=== PATIENT | male | born 1985 | race Caucasian/White ===

== ENCOUNTER 2021-01-23 16:39 | Outpatient (REF) | payer OTHER, SELFPAY | END 2021-01-23 16:40 | disposition home or self-care (01) | LOC: HO.LNP 16:39 | PROVIDERS: Visit Provider Physician Assistant | DX: L03.90 Cellulitis, unspecified (principal) | CPT/HCPCS: 87071; 87077; 87147; 87186; 87205 ==

== ENCOUNTER 2021-03-04 13:12 | Emergency (ER) | payer OTHER, SELFPAY ==
[2021-03-04 14:33] VITALS: BP 139/91; PULSE 81; RESP 19; TEMP 36.6; O2SAT 97; BMI 30.1
[2021-03-04 14:51] LABS: MANUAL DIFF FLAG NO
[2021-03-04 14:52] LABS: Basophils Absolute Auto 0.1 X10*3/uL (0.0-0.2); Basophils Percent Auto 0.8 % (0-2); Eosinophils Absolute Auto 0.3 X10*3/uL (0.0-0.4); Eosinophils Percent Auto 4.4 % (0-4); Hematocrit 44.9 % (42.0-52.0); Hemoglobin 15.3 g/dl (14.0-18.0); Imm Gran Abs Auto 0.02 X10*3/uL (0.00-0.03); Imm Gran Pct Auto 0.3 % (0.0-0.4); Lymphocytes Absolute Auto 2.1 X10*3/uL (1.2-4.9); Lymphocytes Percent Auto 27.2 % (20-40); Mean Corpuscular HGB Conc 34.1 g/dl (31.0-36.0); Mean Corpuscular Hemoglobin 31.4 pg (27.0-33.0); Mean Platelet Volume 9.2 fL (9.4-12.4); Monocytes Percent Auto 13.3 % (2-11); Neutrophils Absolute Auto 4.2 x10*3/uL (2.0-8.3); Platelet Count 290 X10*3/uL (160-400); Red Blood Count 4.88 X10*6/uL (4.60-5.80); Red Cell Distribution Width 12.3 % (11.0-16.0); White Blood Count 7.8 X10*3/uL (4.8-10.8)
--- NOTE | 2021-03-04 14:56 | ED_ITS ---
HPI - Skin/Abscess/Foreign Bdy General Chief complaint: Skin/Abscess/Foreign Body Stated complaint: skin infection Time Seen by Provider: 03/04/21 14:56 Source: patient Limitations: no limitations Related Data Previous Rx's Medication Instructions Recorded triamcinolone acetonide 0.1 % 1 appl TOPICAL BID #30 g 01/23/21 topical ointment paroxetine HCl 30 mg tablet 30 mg PO QAM #90 tab 02/12/21 halobetasol propionate 0.05 % 1 appl TOPICAL BID #50 g 02/27/21 topical ointment sulfamethoxazole 800 1 tab PO Q12H 7 Days #14 tab 02/27/21 mg-trimethoprim 160 mg tablet (Bactrim DS) clotrimazole-betamethasone 1 1 appl TOPICAL BID 28 Days g 03/04/21 %-0.05 % topical cream Allergies Allergy/AdvReac Type Severity Reaction Status Date / Time amoxicillin [Augmentin] Allergy Unknown rash Verified 02/27/21 12:16 azithromycin Allergy Unknown depression Verified 02/27/21 12:16 clavulanic acid [Augmentin] Allergy Unknown rash Verified 02/27/21 12:16 Review of Systems Constitutional: Constitutional: Denies body ache(s), Denies chills, Denies fever(s) and Denies headache(s) ENT: Denies headache(s) Cardiovascular: Cardiovascular: Denies chest pain and Denies dyspnea Respiratory: Respiratory: Denies cough and Denies dyspnea Gastrointestinal: Gastrointestinal: Denies nausea and Denies vomiting Musculoskeletal: Musculoskeletal: Reports no additional musculoskeletal complaints Integumentary/Breasts: Skin/Breast: Reports rash Neurologic: Denies headache(s) [facility] Past Medical History Medical History Major depression Surgical History Ruptured appendix Family History Family History Father History of heart attack Mother No problems noted. Daughter No problems noted. Social History Social History Alcohol intake: current Alcohol intake frequency: a few times a month Patient Tobacco Use Status: Never used Tobacco Advance Directives: No Advance Directives Information Provided: No Physical Exam Vital Signs: Vital Signs: Last Vital Signs Temp 98 F 03/04/21 14:33 Pulse 81 03/04/21 14:33 Resp 19 03/04/21 14:33 BP 139/91 H 03/04/21 14:33 Pulse Ox 97 03/04/21 14:33 BMI result Body Mass Index 30.1 vital signs have been reviewed as normal and appeared to be correct. Blood pressure normal. Heart rate normal. Respiration rate normal. Temperature normal. Oxygen saturation normal. Appearance: Alert. Oriented X3. No acute distress. Head: Normal external exam. Normocephalic. Atraumatic. Eyes: PERRLA. EOMI. Conjunctiva and sclera normal. Eyelids normal. ENT: Pharynx normal. Uvula midline. Moist mucous membranes. Neck: Soft full range of motion, no JVD CVS: Heart regular rate and rhythm no murmurs and rubs Respiratory: Breath sounds are clear to auscultation bilaterally. No accessory muscle use noted. Back: Full range of motion noted. Skin: Right Extremities: No lower extremity edema. Extremities exhibit normal range of motion. Extremities nontender. Neuro: Oriented X 3. No motor deficit. No sensory deficit. Reflexes normal. Course Course Course Narrative: Right arm cellulitis Atopic Dermatitis Allergic Reaction Contact dermatitis Will Check CBC BMP Case discussed with Dr. Leon she agrees with current treatment plan will place patient on topical fungal and steroid cream at this time CBC is negative No obvious cellulitis at this time concerns are for atopic dermatitis and fungal infection at this time MDM - Skin/Abscess/Foreign Bdy Lab Data Result diagrams: 03/04/21 14:46 03/04/21 14:46 Labs: Lab Results 03/04/21 03/04/21 Range/Units 14:46 14:46 WBC 7.8 (4.8-10.8) X10*3/uL RBC 4.88 (4.60-5.80) X10*6/uL Hgb 15.3 (14.0-18.0) g/dl Hct 44.9 (42.0-52.0) % MCV 92.0 (80.0-98.0) fL MCH 31.4 (27.0-33.0) pg MCHC 34.1 (31.0-36.0) g/dl RDW 12.3 (11.0-16.0) % Plt Count 290 (160-400) X10*3/uL MPV 9.2 L (9.4-12.4) fL Immature Gran % (Auto) 0.3 (0.0-0.4) % Neut % (Auto) 54.0 (45-73) % Lymph % (Auto) 27.2 (20-40) % [place] % (Auto) 13.3 H (2-11) % Eos % (Auto) 4.4 H (0-4) % Baso % (Auto) 0.8 (0-2) % Lymph # (Auto) 2.1 (1.2-4.9) X10*3/uL [place] # (Auto) 1.0 (0.1-1.2) X10*3/uL Eos # (Auto) 0.3 (0.0-0.4) X10*3/uL Baso # (Auto) 0.1 (0.0-0.2) X10*3/uL Abs Immat Gran (auto) 0.02 (0.00-0.03) X10*3/uL Absolute Neuts (auto) 4.2 (2.0-8.3) x10*3/uL Absolute Nucleated RBC 0.000 (0.0-0.012) X10*3/uL Nucleated RBC % (auto) 0.0 (0.0-0.2) /100WBC Sodium 139 (135-145) mmol/L Potassium 4.3 (3.3-5.1) mmol/L Chloride 104 (96-108) mmol/L Carbon Dioxide 28 (22-29) mmol/L Anion Gap 11 L (12-20) BUN 11 (9-16) mg/dL Creatinine 1.27 (0.5-1.4) mg/dL Estim Creat Clear Calc 92.2 Estimated GFR > 60 Random Glucose 114 (60-115) mg/dL Calcium 10.1 (8.4-10.2) mg/dL Discharge Plan Discharge Clinical Impression: Acute atopic dermatitis of hand Patient Disposition: Home, Self-Care Instructions: Eczema (ED) Additional Instructions: Topical ointment as directed You need to wash you hands last keep them dry It is recommended you call your PCP for dermatology follow-up Prescriptions: New clotrimazole-betamethasone 1-0.05 % cream 1 appl topical BID 28 Days RF: 0 No Action paroxetine HCl 30 mg tablet 30 mg PO QAM Qty: 90 RF: 0 triamcinolone acetonide 0.1 % ointment 1 appl topical BID Qty: 30 RF: 1 halobetasol propionate 0.05 % ointment 1 appl topical BID Qty: 50 RF: 0 sulfamethoxazole-trimethoprim [Bactrim DS] 800-160 mg tablet 1 tab PO Q12H 7 Days Qty: 14 RF: 0 Referrals: [facility] [Provider Group] - 2 days Stand Alone Forms: Work/School Release
[2021-03-04 15:10] LABS: Anion Gap 11 (12-20); Blood Urea Nitrogen 11 mg/dL (9-16); Calcium 10.1 mg/dL (8.4-10.2); Carbon Dioxide 28 mmol/L (22-29); Chloride 104 mmol/L (96-108); Creatinine Clr Calc Pharmacy 92.2; Estimated Glomerular Filt Rate > 60; Glucose Random 114 mg/dL (60-115); Potassium 4.3 mmol/L (3.3-5.1); Sodium 139 mmol/L (135-145)
== END 2021-03-04 15:37 | disposition home or self-care (01) ==
PROVIDERS: Physician Assistant; Emergency Provider Emergency Medicine; PCP Nurse Practitioner Family
DX: L20.9 Atopic dermatitis, unspecified (principal)
CPT/HCPCS: 36415; 80048; 85025; 99283

== ENCOUNTER 2022-10-25 08:02 | Outpatient (AMB) | payer OTHER, SELFPAY ==
--- NOTE | 2022-10-25 08:05 | AM.OFFWIN_ITS ---
Intake Vital Signs 10/25/22 08:06 Height 5 ft 11 in BP 130/86 Blood Pressure Location Lt brachial Position Sitting Pulse 60 Pulse Source Pulse Oximeter Temp 98.7 F Temp Source Oral Pulse Oximetry (%) 99 Oxygen Delivery Method Room Air Intake Visit Reasons: EP Swollen Gland/Vision LT eye Intake Note: pt has swollen glands on the left side of his neck and on his right arm for over a month and says he has blurry vision in left eye for about a week pt says this was a sx in the past when he had a reaction to a medication rigth eye 20/13 left eye 20/20 both 20/13 Patient Tobacco Use Status: Never used Tobacco Allergies amoxicillin [Augmentin] Allergy (Unknown, Verified 10/25/22 08:09) rash azithromycin Allergy (Unknown, Verified 10/25/22 08:09) depression clavulanic acid [Augmentin] Allergy (Unknown, Verified 10/25/22 08:09) rash Do you need a note to return to daycare/school/sports/work: No HPI EP Swollen Gland/Vision LT eye HPI Details 37-year-old male presents to the office for a sick visit. He has 2 complaints. Patient is complaining of swollen lymph node in the neck area. He has pain when he turns his head to the left. He has difficulty swallowing. Was seen by a dentist yesterday. No dental cavities or disease identified. He also has a similar lymph node in the right arm. Patient is complaining of a different vision in the left eye. He feels the colors are darker and this surface insert of flat appearance has a wavy appearance. Patient was taking biologicals for eczema when he had similar issues. It was attributed to the biological and he discontinued the medication. Symptoms subsided. This happened 6 months ago. The recurrence is in the past week. [facility] Medical History Major depression Surgical History Ruptured appendix Family History (Updated 08/05/21 @ 07:43 by Delmis Lozano [facility]) Father History of heart attack Mother No problems noted. Daughter No problems noted. Social History Housing: House Alcohol intake: current Alcohol intake frequency: a few times a month Patient Tobacco Use Status: Never used Tobacco e-Cigarette/Vaping Use: Never Used service: No Current occupational status: employed Cognitive needs: No Hearing needs: No Vision needs: No Physical Exam Vital Signs: Last Vital Signs Temp 98.7 F 10/25/22 08:06 Pulse 60 10/25/22 08:06 BP 130/86 10/25/22 08:06 Pulse Ox 99 10/25/22 08:06 Oxygen Delivery Method Room Air 10/25/22 08:06 Const General: cooperative and healthy appearing Nutritional Appearance: well nourished Orientation/consciousness: patient oriented x3 Limitations: no limitations HEENT Head: Yes normal to inspection Eyes General: appearance normal, both eyes and all related structures Neck Other: Single submandibular lymph node palpable which is tender. Small lymph node is palpable just above the right elbow. Neck: Yes normal visual inspection Chest Chest palpation & inspection: normal palpation of entire chest wall Resp Effort & Inspection: normal respiratory effort Neuro General: patient oriented x3 Assessment & Plan Assessment & Plan (1) Cervical lymphadenopathy: Code(s): R59.0 - Localized enlarged lymph nodes Plan: Blood work has been ordered. Antibiotics have been called in. (2) Abnormal visual perception: Code(s): H53.9 - Unspecified visual disturbance Plan: Patient is seen a retina physician in the past. I encouraged him to make an appointment with the same provider. If he has difficulty in making the appointment, patient was encouraged to call back. Orders: Orders Basic Metabolic Panel Today R59.0 - Localized enlarged lymph nodes C Reactive Protein Today R59.0 - Localized enlarged lymph nodes Liver Panel Today R59.0 - Localized enlarged lymph nodes Thyroid Stimulating Hormone Today R59.0 - Localized enlarged lymph nodes Complete Blood Count no Diff Today R59.0 - Localized enlarged lymph nodes Coding Level of Care Code Est Pt Level 4 (47800) Diagnoses Cervical lymphadenopathy R59.0 Abnormal visual perception H53.9
[2022-10-25 08:06] VITALS: BP 130/86; PULSE 60; TEMP 37.1; O2SAT 99
== END 2022-10-25 09:58 | disposition home or self-care (01) ==
PROVIDERS: PCP Nurse Practitioner Family; Visit Provider Internal Medicine
DX: R59.0 Localized enlarged lymph nodes (principal); H53.9 Unspecified visual disturbance
CPT/HCPCS: 99214

== ENCOUNTER 2022-10-25 08:36 | Outpatient (REF) | payer OTHER, SELFPAY ==
[2022-10-25 11:44] LABS: Hematocrit 44.7 % (42.0-52.0); Hemoglobin 14.9 g/dl (14.0-18.0); Mean Corpuscular HGB Conc 33.3 g/dl (31.0-36.0); Mean Corpuscular Hemoglobin 30.5 pg (27.0-33.0); Mean Corpuscular Volume 91.6 fL (80.0-98.0); Mean Platelet Volume 9.7 fL (9.4-12.4); Platelet Count 276 X10*3/uL (160-400); Red Blood Count 4.88 X10*6/uL (4.60-5.80); Red Cell Distribution Width 12.2 % (11.0-16.0); White Blood Count 6.6 X10*3/uL (4.8-10.8)
[2022-10-25 12:40] LABS: Alanine Aminotransferase 29 U/L (0-40); Albumin Level 4.4 g/dL (3.5-5.0); Alkaline Phosphatase 91 U/L (39-117); Anion Gap 14 (12-20); Aspartate Amino Transferase 24 U/L (5-37); Bilirubin Direct 0.2 mg/dL (0.0-0.5); Bilirubin Total 0.5 mg/dL (0.0-1.0); Blood Urea Nitrogen 10 mg/dL (9-16); C Reactive Protein 0.11 mg/dL (< or = 0.50); Carbon Dioxide 25 mmol/L (22-29); Chloride 106 mmol/L (96-108); Estimated Glomerular Filt Rate > 60; Glucose Random 90 mg/dL (60-115); Potassium 4.2 mmol/L (3.3-5.1); Sodium 141 mmol/L (135-145); Total Protein 7.9 g/dL (6.5-8.0)
[2022-10-25 12:57] LABS: Thyroid Stimulating Hormone 2.38 uIU/mL (0.32-4.0)
== END 2022-10-25 08:37 | disposition home or self-care (01) ==
LOC: HO.HMGCLDS 08:36
PROVIDERS: PCP Nurse Practitioner Family; Visit Provider Internal Medicine
DX: R59.0 Localized enlarged lymph nodes (principal); E03.9 Hypothyroidism, unspecified
CPT/HCPCS: 36415; 80048; 80076; 84443; 85027; 86140

== ENCOUNTER 2022-11-17 08:31 | Outpatient (AMB) | payer OTHER, SELFPAY ==
[2022-11-17 08:42] VITALS: BP 102/70; PULSE 85; O2SAT 97; BMI 27.9
--- NOTE | 2022-11-17 08:42 | MHC.PC.OV ---
Vital Signs 11/17/22 08:42 Height 5 ft 11 in Weight 200 lb 2 oz BMI 27.9 BP 102/70 Blood Pressure Location Lt brachial Position Sitting Pulse 85 Pulse Source Pulse Oximeter Pulse Oximetry (%) 97 Oxygen Delivery Method Room Air Intake Visit Reasons: Med review Allergies amoxicillin [Augmentin] Allergy (Unknown, Verified 11/17/22 10:56) rash azithromycin Allergy (Unknown, Verified 11/17/22 10:56) depression clavulanic acid [Augmentin] Allergy (Unknown, Verified 11/17/22 10:56) rash Medication List - Last Reconciled 11/17/22 by RONNIE Child-AMAURY clotrimazole-betamethasone 1-0.05 % 1 appl topical BID 4 weeks paroxetine HCl 30 mg PO QAM triamcinolone acetonide 0.1% 1 appl topical BID Tobacco use date assessed: 11/17/22 Dental Screening Dental Screen Date: 11/17/22 Did you have a dental visit in the last 12 months?: Yes Did you have a dental problem in the last 6 months where you did not have access to dental care?: No Was dental information given to patient?: Patient has dentist HPI Med review HPI Details Pt c/o cough and wheezing. He was recently treated with an antibiotic for a swollen lymph node. Will order chest xr. Will also send prednisone and zpak. Denies fever, chills, chest pain, and shortness of breath. [facility] Medical History Major depression Surgical History Ruptured appendix Family History Father History of heart attack Mother No problems noted. Daughter No problems noted. Social History Housing: House Alcohol intake: current Alcohol intake frequency: a few times a month Patient Tobacco Use Status: Never used Tobacco e-Cigarette/Vaping Use: Never Used service: No Current occupational status: employed Cognitive needs: No Hearing needs: No Vision needs: No Questionnaire Thrive Questionnaire Date Thrive assessed: 08/05/21 BRANNON-7 AMB Questionnaire BRANNON-7 Date BRANNON - 7 assessed: 08/05/21 Source: Developed by Drs. Cooper Zelaya, Meseret Hua, Alexsander Alvarado and colleagues, with an educational brian from [employer]. Review of Systems Const Reports as per HPI Physical exam (Primary Care) Vital Signs: Last Vital Signs Pulse 85 11/17/22 08:42 BP 102/70 11/17/22 08:42 Pulse Ox 97 11/17/22 08:42 Oxygen Delivery Method Room Air 11/17/22 08:42 BMI result Body Mass Index 27.9 Tobacco/Smoking Status: Tobacco use Status Tobacco use date assessed 11/17/22 11/17/22 08:53 Patient Tobacco Use Status Never used Tobacco 11/17/22 08:53 e-Cigarette/Vaping Use Never Used 11/17/22 08:53 Thrive Assessment: Date of Thrive Assessment Date Thrive assessed 08/05/21 11/17/22 08:53 Const General: cooperative Orientation/consciousness: patient oriented x3 Resp Other: very coarse lungs with wheezing Effort & Inspection: normal respiratory effort Cardio Rate: regular rate Rhythm: regular rhythm Heart sounds: S1 normal heart sound present and S2 normal heart sound present Neuro General: patient oriented x3 Psych Appearance: grossly normal Mental Status: mental status grossly normal Speech and movement: Normal speech and movement present Affect: normal affect Attitude: cooperative Thought process: Normal thought process present Thought content: Normal thought content present Insight: Good insight present (Psych) Judgement: Good judgement present (Psych) Assessment and Plan Assessment & Plan (1) Wheezing: Code(s): R06.2 - Wheezing Plan: Chest xr ordered, prednisone and zpak sent Plan The patient agreed to the use of a medical center director for this encounter. Scribed for DENIS Sims by Medina Garcia medical center director, on 11/17/2022 at 09:00 EST. Orders: Orders XR chest 2V Today R06.2 - Wheezing Medications: New azithromycin For 250 mg dose pack: take 500 mg today (day 1), then 250 mg for 4 days (days 2-5) PO 6 tabs 0RF 5 days prednisone 50 mg PO DAILY 6 tabs 0RF albuterol sulfate 90 mcg/actuation (Ventolin HFA) 2 puffs inhalation Q6H PRN 8.5 grams 3RF shortness of breath or wheezing Refilled paroxetine HCl 30 mg PO QAM 90 tabs 2RF Coding Level of Care Code Est Pt Level 3 (58808) Diagnoses Wheezing R06.2
== END 2022-11-17 09:49 | disposition home or self-care (01) ==
PROVIDERS: Visit Provider Nurse Practitioner Family
DX: R06.2 Wheezing (principal)
CPT/HCPCS: 99213

== ENCOUNTER 2022-11-17 09:19 | Outpatient (REF) | payer OTHER, SELFPAY ==
--- NOTE | ~2022-11-17 | XR_ITS ---
EXAMINATION: XR CHEST CLINICAL INFORMATION: Wheezing. COMPARISON: None available. TECHNIQUE: 2 views of the chest were obtained. FINDINGS: Mild linear markings are seen in the lingula and right middle lobe. The upper lung [place] are clear. There are no pleural effusions. The heart and mediastinal structures are unremarkable. XR/XR chest 2V IMPRESSION: Mild linear atelectasis or scarring bilaterally. No acute cardiopulmonary process.
== END 2022-11-17 09:20 | disposition home or self-care (01) ==
LOC: HO.HMGCX 09:19
PROVIDERS: PCP Nurse Practitioner Family; Visit Provider Nurse Practitioner Family
DX: R06.2 Wheezing (principal)
CPT/HCPCS: 71046

== ENCOUNTER 2023-06-06 07:30 | Outpatient (AMB) | payer OTHER, SELFPAY ==
--- NOTE | 2023-06-06 07:38 | MHC.PC.OV ---
Vital Signs 06/06/23 07:42 Height 5 ft 11 in Weight 222 lb BMI 31.0 BP 116/70 Blood Pressure Location Rt brachial Position Sitting Pulse 71 Pulse Source Pulse Oximeter Pulse Oximetry (%) 97 Oxygen Delivery Method Room Air Intake Visit Reasons: PE Intake Note: Pt is here today for his PE Allergies amoxicillin [Augmentin] Allergy (Unknown, Verified 06/06/23 07:49) rash azithromycin Allergy (Unknown, Verified 06/06/23 07:49) depression clavulanic acid [Augmentin] Allergy (Unknown, Verified 06/06/23 07:49) rash Medication List - Last Reconciled 06/06/23 by DENIS Child albuterol sulfate 90 mcg/actuation (Ventolin HFA) 2 puffs inhalation Q6H PRN paroxetine HCl 30 mg PO QAM Tobacco use date assessed: 06/06/23 Dental Screening Dental Screen Date: 06/06/23 Did you have a dental visit in the last 12 months?: Yes Did you have a dental problem in the last 6 months where you did not have access to dental care?: Yes Was dental information given to patient?: Patient has dentist HPI PE HPI Details Pt is here for a PE. Will order labs. PFSH Medical History Major depression Surgical History Ruptured appendix Family History Father History of heart attack Mother No problems noted. Daughter No problems noted. Social History Housing: House Alcohol intake: current Alcohol intake frequency: a few times a month Patient Tobacco Use Status: Never used Tobacco e-Cigarette/Vaping Use: Never Used service: No Current occupational status: employed Cognitive needs: No Hearing needs: No Vision needs: No Questionnaire PHQ-9 Over the last 2 weeks, how often have you been bothered by any of the following problems? 1. Little interest or pleasure in doing things: not at all 2. Feeling down, depressed, or hopeless: not at all 3. Trouble falling or staying asleep, or sleeping too much: not at all 4. Feeling tired or having little energy: not at all 5. Poor appetite or overeating: not at all 6. Feeling bad about yourself - or that you are a failure or have let yourself or your family down: not at all 7. Trouble concentrating on things, such as reading the newspaper or watching television: not at all 8. Moving or speaking so slowly that other people could have noticed. Or the opposite - being so fidgety or restless that you have been moving around a lot more than usual: not at all 9. Thoughts that you would be better off or of hurting yourself in some way: not at all Total score: 0 Depression Screening Interpretation: Negative Depression Screening Done: Yes 43950 - PHQ-9 Billing: Yes Source: Developed by Drs. Cooper Zelaya, Meseret Hua, Alexsander Alvarado and colleagues, with an educational brian from [employer]. Thrive Questionnaire Date Thrive assessed: 06/06/23 I am a: Patient What is your living situation today?: I have a steady place to live Within the past 12 months, did the food you bought not last and you didn't have the money to get more?: Never true Within the past 12 months, did you worry whether your food would run out before you got money to buy more?: Never true Do you have trouble paying for medicines?: No Do you have trouble getting transportation to medical appointments?: No Do you have trouble paying your heating and electricity bill?: No Do you have trouble taking care of your child, family member or friend?: No Do you have trouble with day-to-day activities such as bathing, preparing meals, shopping, managing finances, etc.?: No Are you currently unemployed and looking for a job?: No Are you interested in more education?: No Currently or been in a relationship where the following occur: no concerns reported THRIVE Score: 0 AUDIT C Alcohol Use Questionnaire (AUDIT-C) 1. How often do you have a drink containing alcohol?: Monthly or less 2. How many drinks containing alcohol do you have on a typical day when you are drinking?: 1 or 2 3. How often do you have six or more drinks on one occasion?: Never Total Score: 1 Score Reviewed/Action Taken: Yes BRANNON-7 AMB Questionnaire BRANNON-7 Date BRANNON - 7 assessed: 06/06/23 Feeling nervous, anxious, or on edge: 0 = Not at all Not being able to stop or control worryin = Not at all Worrying too much about different things: 0 = Not at all Trouble relaxin = Not at all Being so restless that it is hard to sit still: 0 = Not at all Becoming easily annoyed or irritable: 0 = Not at all Feeling afraid as if something awful might happen: 0 = Not at all Total BRANNON-7 score (0-4 normal; 5-9 mild; 10-14 moderate; 15-21 severe): 0 Source: Developed by Drs. Cooper Zelaya, Meseret Hua, Alexsander Alvarado and colleagues, with an educational brian from [employer]. BRANNON-7 Assessment Billing BRANNON-7 Assessment Tool: BRANNON-7 Assessment 61548 Review of Systems Const Denies chills and Denies fever(s) Eyes Denies blurry vision ENT Denies vertigo, Denies dizziness and Denies sore throat Card Denies chest pain at rest, Denies chest pain with activity, Denies diaphoresis, Denies dyspnea and Denies dyspnea on exertion Resp Denies cough, Denies dyspnea, Denies dyspnea on exertion and Denies wheezing GI Denies abdominal pain, Denies melena, Denies hematochezia, Denies constipation, Denies diarrhea and Denies loose stools Denies hematuria Musc Denies numbness and Denies tingling Skin/Breast Denies lesions Neuro Denies vertigo, Denies dizziness, Denies numbness and Denies tingling Psych Denies anxiety, Denies depression, Denies homicidal ideation, Denies suicidal ideation and Denies other (substance abuse) Aller/Immun Denies wheezing Physical exam (Primary Care) Vital Signs: Last Vital Signs Pulse 71 06/06/23 07:42 BP 116/70 06/06/23 07:42 Pulse Ox 97 06/06/23 07:42 Oxygen Delivery Method Room Air 06/06/23 07:42 BMI result Body Mass Index 31.0 Tobacco/Smoking Status: Tobacco use Status Tobacco use date assessed 06/06/23 06/06/23 07:43 Patient Tobacco Use Status Never used Tobacco 06/06/23 07:39 e-Cigarette/Vaping Use Never Used 06/06/23 07:39 PHQ-9: PHQ-9 Score PHQ-9: Total score 0 06/06/23 07:45 Depression Screening Interpretation: Negative Thrive Assessment: Date of Thrive Assessment Date Thrive assessed 06/06/23 06/06/23 07:44 Currently or been in a relationship where the following occur: no concerns reported Const General: cooperative Nutritional Appearance: obese Orientation/consciousness: patient oriented x3 HENMT Head: Yes normal to inspection, Yes normocephalic and Yes atraumatic Ears: TM's normal bilaterally Eyes General: appearance normal, both eyes and all related structures Alignment and Position: alignment normal and position normal Neck Neck: Yes normal visual inspection and Yes no lymphadenopathy Thyroid: Thyroid normal Resp Effort & Inspection: normal respiratory effort Auscultation: clear to auscultation bilaterally Cardio Rate: regular rate Rhythm: regular rhythm Heart sounds: S1 normal heart sound present, S2 normal heart sound present and no murmurs GI Palpation (GI): Soft to palpation and nontender Auscultation: normal bowel sounds Male General Exam: Yes normal external exam Penis: normal penis Scrotum: scrotum normal, testes descended bilaterally and no inguinal hernias Testes: no testicular mass Skin Rashes: no rashes Neuro General: patient oriented x3, moves all extremities, no focal motor deficits and deep tendon reflexes 2+ bilaterally Romberg Test: Negative Psych Appearance: grossly normal Mental Status: mental status grossly normal Speech and movement: Normal speech and movement present Affect: normal affect Attitude: cooperative Thought process: Normal thought process present Thought content: Normal thought content present Insight: Good insight present (Psych) Judgement: Good judgement present (Psych) Assessment and Plan Assessment & Plan (1) Physical exam: Code(s): Z00.00 - Encounter for general adult medical examination without abnormal findings Plan: Labs ordered Plan The patient agreed to the use of a center medical specialist for this encounter. Scribed for DENIS Sims by Medina Garcia center medical specialist, on 06/06/2023 at 07:50 EST. Orders: Orders Complete Blood Count Auto Diff Today Z00.00 - Encounter for general adult medical examination without abnormal findings Comprehensive [place]. Panel Fast Today Z00.00 - Encounter for general adult medical examination without abnormal findings TSH reflex Free T4 Today Z00.00 - Encounter for general adult medical examination without abnormal findings Lipid Panel Today Z00.00 - Encounter for general adult medical examination without abnormal findings UA CC w/rflx Micro + Cult Today Z00.00 - Encounter for general adult medical examination without abnormal findings Coding Level of Care Code Est Pt Prev Care 40-64y(76129) Diagnoses Physical exam Z00.00 Additional Codes BRANNON-7 Assessment Billing - BRANNON-7 Assessment Tool: BRANNON-7 Assessment [id number] ([id number])
[2023-06-06 07:42] VITALS: BP 116/70; PULSE 71; O2SAT 97; BMI 31.0
== END 2023-06-06 10:46 | disposition home or self-care (01) ==
PROVIDERS: PCP Nurse Practitioner Family; Visit Provider Nurse Practitioner Family
DX: Z00.00 Encounter for general adult medical examination without abnormal findings (principal)
CPT/HCPCS: 99396

== ENCOUNTER 2024-07-03 07:49 | Outpatient (AMB) | payer OTHER, SELFPAY ==
[2024-07-03 08:03] VITALS: BP 118/80; PULSE 71; O2SAT 98; BMI 30.4
--- NOTE | 2024-07-03 08:03 | A.OFFPC_ITS ---
Vital Signs 07/03/24 08:03 Height 5 ft 11 in Weight 218 lb BMI 30.4 BP 118/80 Blood Pressure Location Lt brachial Position Sitting Pulse 71 Pulse Source Pulse Oximeter Pulse Oximetry (%) 98 Oxygen Delivery Method Room Air Intake Visit Reasons: PE Systems Engineer Required: No Accompanied by: Self / Same As Patient Allergies amoxicillin [Augmentin] Allergy (Unknown, Verified 07/03/24 08:04) rash azithromycin Allergy (Unknown, Verified 07/03/24 08:04) depression clavulanic acid [Augmentin] Allergy (Unknown, Verified 07/03/24 08:04) rash Medication List - Last Reconciled 07/03/24 by Heath Ewing, CHIEF DEVELOPMENT OFFICER- albuterol sulfate 90 mcg/actuation (Ventolin HFA) 2 puffs inhalation Q6H PRN paroxetine HCl 30 mg PO QAM Tobacco use date assessed: 07/03/24 Dental Screening Dental Screen Date: 07/03/24 Did you have a dental visit in the last 12 months?: Yes Did you have a dental problem in the last 6 months where you did not have access to dental care?: No Was dental information given to patient?: Patient has dentist HPI PE HPI Details History of Present Illness The patient is a 39-year-old male presenting for a physical examination primarily due to concerns of upper lumbar back pain. The pain is described as tenderness localized to the spine and the paraspinous muscles in the lumbar area. No radicular symptoms are noted as confirmed by a negative straight leg test. Functional evaluation shows that the patient can heel and toe walk without inducing additional pain. The patient denies any other systemic symptoms such as fevers, chills, or respiratory and gastrointestinal discomfort, which further isolates the back pain as the main presenting concern. There were no details provided concerning the duration or specific triggers for the back pain during this visit. Health Maintenance Social History Review of Systems - General: Denies fevers or chills - Cardiovascular: Denies chest pain - Respiratory: Denies shortness of breat h - Gastrointestinal: Denies abdominal amelia n, constipation, diarrhea - Genitourinary: Denies urinary issues - Musculoskeletal: Reports upper lumbar back pain - Neurological: Denies radicular symptom s - Psychiatric: Denies suicidal ideation, homicidal ideation Physical Exam General: Cooperative, healthy appearing, comfortable, no acute distress and well developed Orientation: Patient oriented x3 Limitations: No limitations Head: Normal to inspection Ears: Hearing grossly normal bilaterally Nose: Normal external nose present Face and sinus: Normal facial exam Eyes: Appearance normal, both eyes and all related structures Neck: Normal visual inspection and Yes full ROM Respiratory: Normal respiratory effort and able to speak in complete sentences. Clear to auscultation bilaterally Cardiovascular: Regular rate and rhythm. Normal S1 and S2 GI: Normal to inspection. Soft to palpation and nontender Skin: faint eczema dermatitis to bilat hands Neuro: Patient oriented x3 Extremities: Normal to inspection. tendenderness reported with palpation of upper lumbar spine, with tenderness to paraspinous muscles as well Results Plan I have decided to conduct an x-ray of the lumbar spine to further investigate the patient's back pain. The imaging will help to identify any underlying causes that might be contributing to the current symptoms. After reviewing the x-ray findings, a more tailored approach to management may be taken, possibly including physical therapy or referral to a specialist should there be significant findings warranting such. The patient has been informed and consents to this initial investigation strategy. Follow-up and additional interventions will depend on the x-ray results. Discussion Notes During our discussion, I explained the potential causes of the patient's upper lumbar back pain and recommended obtaining a lumbar spine x-ray to further assess the condition. I informed the patient about the possible findings of the x-ray and the subsequent steps that could be taken depending on the results, such as further diagnostic evaluations or specific treatment modalities, if needed. The patient was advised about the purpose of the examination and expressed understanding and agreement. Patient Instructions - Follow instructions for obtaining the lumbar spine x-ray promptly. - Report any worsening symptoms or new s ymptoms that arise prior to the next appointment. - Return for follow-up after the x-ray f or further evaluation and management. - Avoid any activities that exacerbate b ack pain until further recommendations are made. [facility] Medical History Major depression Surgical History Ruptured appendix Family History Father History of heart attack Mother No problems noted. Daughter No problems noted. Social History Housing: House Alcohol intake: current Alcohol intake frequency: a few times a month Patient Tobacco Use Status: Never used Tobacco e-Cigarette/Vaping Use: Never Used service: No Current occupational status: employed Cognitive needs: No Hearing needs: No Vision needs: No Questionnaire PHQ-9 Over the last 2 weeks, how often have you been bothered by any of the following problems? 1. Little interest or pleasure in doing things: not at all 2. Feeling down, depressed, or hopeless: not at all 3. Trouble falling or staying asleep, or sleeping too much: not at all 4. Feeling tired or having little energy: several days 5. Poor appetite or overeating: not at all 6. Feeling bad about yourself - or that you are a failure or have let yourself or your family down: not at all 7. Trouble concentrating on things, such as reading the newspaper or watching television: several days 8. Moving or speaking so slowly that other people could have noticed. Or the opposite - being so fidgety or restless that you have been moving around a lot more than usual: not at all 9. Thoughts that you would be better off or of hurting yourself in some way: not at all Total score: 2 Depression Screening Interpretation: Negative Depression Screening Done: Yes 26352 - PHQ-9 Billing: Yes Source: Developed by Drs. Cooper Zelaya, Meseret Hua, Alexsander Alvarado and colleagues, with an educational brian from [employer]. Thrive Questionnaire Date Thrive assessed: 07/03/24 I am a: Patient What is your living situation today?: I have a steady place to live Within the past 12 months, did the food you bought not last and you didn't have the money to get more?: Never true Within the past 12 months, did you worry whether your food would run out before you got money to buy more?: Never true Do you have trouble paying for medicines?: No Do you have trouble getting transportation to medical appointments?: No Do you have trouble paying your heating and electricity bill?: No Do you have trouble taking care of your child, family member or friend?: No Do you have trouble with day-to-day activities such as bathing, preparing meals, shopping, managing finances, etc.?: No Are you currently unemployed and looking for a job?: No Are you interested in more education?: No Please select the resources that you would like help with: None Currently or been in a relationship where the following occur: No concerns reported THRIVE Score: 0 AUDIT C Alcohol Use Questionnaire (AUDIT-C) 1. How often do you have a drink containing alcohol?: Monthly or less 2. How many drinks containing alcohol do you have on a typical day when you are drinking?: 1 or 2 3. How often do you have six or more drinks on one occasion?: Never Total Score: 1 Score Reviewed/Action Taken: Yes BRANNON-7 AMB Questionnaire BRANNON-7 Date BRANNON - 7 assessed: 07/03/24 Feeling nervous, anxious, or on edge: 0 = Not at all Not being able to stop or control worryin = Not at all Worrying too much about different things: 1 = Several days Trouble relaxin = Several days Being so restless that it is hard to sit still: 1 = Several days Becoming easily annoyed or irritable: 1 = Several days Feeling afraid as if something awful might happen: 0 = Not at all Total BRANNON-7 score (0-4 normal; 5-9 mild; 10-14 moderate; 15-21 severe): 4 Source: Developed by Drs. Cooper Zelaya, Meseret Hua, Alexsander Alvarado and colleagues, with an educational brian from [employer]. BRANNON-7 Assessment Billing BRANNON-7 Assessment Tool: BRANNON-7 Assessment 99471 Physical exam (Primary Care) Vital Signs: Last Vital Signs Pulse 71 07/03/24 08:03 BP 118/80 07/03/24 08:03 Pulse Ox 98 07/03/24 08:03 Oxygen Delivery Method Room Air 07/03/24 08:03 BMI result Body Mass Index 30.4 Tobacco/Smoking Status: Tobacco use Status Tobacco use date assessed 07/03/24 07/03/24 08:04 Patient Tobacco Use Status Never used Tobacco 07/03/24 08:04 e-Cigarette/Vaping Use Never Used 07/03/24 08:04 PHQ-9: PHQ-9 Score PHQ-9: Total score 2 07/03/24 08:04 Depression Screening Interpretation: Negative Thrive Assessment: Date of Thrive Assessment Date Thrive assessed 07/03/24 07/03/24 08:04 Currently or been in a relationship where the following occur: No concerns reported Coding Level of Care Code Est Pt Prev Care 40-64y(52677) Diagnoses Lumbar back pain M54.50 Physical exam Z00.00 Additional Codes BRANNON-7 Assessment Billing - BRANNON-7 Assessment Tool: BRANNON-7 Assessment 62498 ([id number]) PHQ-9 - 31035 - PHQ-9 Billing: Yes ([id number]) Assessment & Plan Assessment & Plan (1) Lumbar back pain: Code(s): M54.50 - Low back pain, unspecified Category: Medical (2) Physical exam: Code(s): Z00.00 - Encounter for general adult medical examination without abnormal findings Category: Medical Plan . Orders: Orders Complete Blood Count Auto Diff Today Z00.00 - Encounter for general adult medical examination without abnormal findings TSH reflex Free T4 Today Z00.00 - Encounter for general adult medical examination without abnormal findings UA CC w/rflx Micro + Cult Today Z00.00 - Encounter for general adult medical examination without abnormal findings Lipid Panel Today Z00.00 - Encounter for general adult medical examination without abnormal findings Comprehensive [place]. Panel Fast Today Z00.00 - Encounter for general adult medical examination without abnormal findings XR lumbar spine 2-3V Today M54.50 - Low back pain, unspecified
== END 2024-07-03 08:32 | disposition home or self-care (01) ==
LOC: HO.HMCC 07:50
PROVIDERS: PCP Nurse Practitioner Family; Visit Provider Nurse Practitioner Family
DX: M54.50 Low back pain, unspecified (principal); Z00.00 Encounter for general adult medical examination without abnormal findings

== ENCOUNTER 2024-07-03 07:49 | Outpatient (REF) | payer OTHER, SELFPAY ==
--- NOTE | ~2024-07-03 | XR_ITS ---
EXAMINATION: XR LUMBOSACRAL SPINE CLINICAL INFORMATION: M54.50 - Low back pain, unspecified COMPARISON: None available. TECHNIQUE: Three views of the lumbosacral spine. FINDINGS: No acute cortical disruption or listhesis. No lytic or blastic lesions. XR/XR lumbar spine 2-3V IMPRESSION: No acute fracture or listhesis or gross abnormality Electronically signed by: Darrell Vazquez MD 07/03/2024 09:08 AM EDT
== END 2024-07-03 07:50 | disposition home or self-care (01) ==
LOC: HO.HMGCX 07:49
PROVIDERS: PCP Nurse Practitioner Family; Visit Provider Nurse Practitioner Family
DX: Z00.00 Encounter for general adult medical examination without abnormal findings (principal); M54.50 Low back pain, unspecified
CPT/HCPCS: 72100; 96127

== ENCOUNTER → 2024-07-03 08:36 | Outpatient (BNV) | payer OTHER, SELFPAY | PROVIDERS: PCP Nurse Practitioner Family; Visit Provider Radiology Diagnostic Radiology | DX: M54.50 Low back pain, unspecified (principal) | CPT/HCPCS: 72100 ==

== ENCOUNTER 2024-09-10 07:58 | Outpatient (REF) | payer OTHER, SELFPAY ==
[2024-09-10 10:23] LABS: MANUAL DIFF FLAG NO
[2024-09-10 10:28] LABS: Basophils Percent Auto 0.7 % (0-2); Eosinophils Absolute Auto 0.4 X10*3/uL (0.0-0.4); Eosinophils Percent Auto 5.8 % (0-4); Hematocrit 43.5 % (42.0-52.0); Hemoglobin 14.8 g/dl (14.0-18.0); Imm Gran Abs Auto 0.02 X10*3/uL (0.00-0.03); Imm Gran Pct Auto 0.3 % (0.0-0.4); Lymphocytes Percent Auto 32.1 % (20-40); Mean Platelet Volume 9.9 fL (9.4-12.4); Monocytes Absolute Auto 0.8 X10*3/uL (0.1-1.2); Monocytes Percent Auto 12.7 % (2-11); Neutrophils Absolute Auto 2.9 x10*3/uL (2.0-8.3); Neutrophils Percent Auto 48.4 % (45-73); Platelet Count 272 X10*3/uL (160-400); Red Blood Count 4.78 X10*6/uL (4.60-5.80); Red Cell Distribution Width 12.4 % (11.0-16.0); White Blood Count 6.1 X10*3/uL (4.8-10.8)
[2024-09-10 10:31] LABS: Appearance Urine Clear; Color Urine Yellow; Glucose Urine UA Negative (Negative); Leukocyte Esterase Urine Negative (Negative); Nitrite Urine Negative (Negative); Specific Gravity - Urine 1.025 (1.005-1.025); Urine Blood Negative (Negative); Urine Ketones Trace mg/dL (Negative); Urine Protein Negative (Neg-Trace)
[2024-09-10 11:12] LABS: Alanine Aminotransferase 47 U/L (0-40); Albumin Level 4.6 g/dL (3.5-5.0); Alkaline Phosphatase 83 U/L (39-117); Anion Gap 11 (12-20); Aspartate Amino Transferase 34 U/L (5-37); Bilirubin Total 0.7 mg/dL (0.0-1.0); Blood Urea Nitrogen 13 mg/dL (9-16); Calcium 9.6 mg/dL (8.4-10.2); Carbon Dioxide 28 mmol/L (22-29); Chloride 107 mmol/L (96-108); Cholesterol 208 mg/dL (<200); Estimated Glomerular Filt Rate > 60; Glucose Fasting 86 mg/dL (60-99); HDL Cholesterol 37 mg/dL (>40); LDL Cholesterol Calculated 143 mg/dL (<100); Potassium 4.2 mmol/L (3.3-5.1); Sodium 142 mmol/L (135-145); Total Protein 7.2 g/dL (6.5-8.0); Triglycerides 143 mg/dL (<150)
[2024-09-10 11:16] LABS: TSH reflex Free T4 4.67 uIU/mL (0.32-4.0)
[2024-09-10 12:03] LABS: Free T4 (Free Thyroxine) 0.73 ng/dL (0.71-1.85)
== END 2024-09-10 07:59 | disposition home or self-care (01) ==
LOC: HO.HMGCLDS 07:58
PROVIDERS: PCP Nurse Practitioner Family; Visit Provider Nurse Practitioner Family
DX: Z00.00 Encounter for general adult medical examination without abnormal findings (principal); Z13.6 Encounter for screening for cardiovascular disorders
CPT/HCPCS: 36415; 80053; 80061; 81003; 84439; 84443; 85025

== ENCOUNTER 2024-10-16 08:31 | Outpatient (REF) | payer OTHER, SELFPAY ==
--- NOTE | ~2024-10-16 | US_ITS ---
EXAMINATION: US ABDOMEN HISTORY: R74.8 - Abnormal levels of other serum enzymes TECHNIQUE: Real-time grayscale ultrasound imaging of the abdomen was performed and images were reviewed. COMPARISON: There are no prior studies available for comparison. FINDINGS: Liver: The right lobe of the liver measures 13.5 cm in size. The left lobe of the liver measures 10.8 cm in size. The liver demonstrates increased echotexture, consistent with steatosis. No focal mass or intrahepatic biliary ductal dilatation is identified. There is normal hepatopedal flow in the portal vein. Gallbladder and biliary tree: The gallbladder is unremarkable, without evidence of calculi, wall thickening, or pericholecystic fluid. There is no sonographic Beltran sign. The common bile duct is normal in caliber measuring 2 mm. Kidneys: The right kidney measures 11.7 cm in length. The left kidney measures 11.5 cm in length. The kidneys are unremarkable, without evidence of masses, hydronephrosis, or calculi. Pancreas: The pancreatic head, neck, and body are unremarkable. The pancreatic tail is obscured by bowel gas. Spleen: The spleen is normal in size and contour, measuring 12.5 cm in length. Abdominal aorta and inferior vena cava: The visualized portions of the abdominal aorta and inferior vena cava are normal in caliber. There is no free fluid in the abdomen. US/US abdomen complete IMPRESSION: Hepatic steatosis. Electronically signed by: Cooper Cunningham MD 10/16/2024 09:04 AM EDT
[2024-10-16 10:59] LABS: Cholesterol 193 mg/dL (<200); HDL Cholesterol 37 mg/dL (>40); Triglycerides 123 mg/dL (<150)
[2024-10-16 11:39] LABS: HBS Num1 915.26 mIU/mL (0-7.99); HBc Num1 0.08 S/CO (0.00-0.79); HBsAGNum1 0.37 S/CO (0.00-0.99); Hepatitis A Antibody IgM 0.13 Index (0-0.79); Hepatitis B Surface Antigen Negative (Negative); ~HepC Num1 0.08 S/CO (0.00-0.79); ~Hepatitis A Antibody IgM Nonreactive (Nonreactive); ~Hepatitis B Surface Antibody REACTIVE (Nonreactive); ~Hepatitis C Antibody Nonreactive (Nonreactive)
== END 2024-10-16 08:32 | disposition home or self-care (01) ==
LOC: HO.HMGCX 08:31
PROVIDERS: PCP Nurse Practitioner Family; Visit Provider Nurse Practitioner Family
DX: Z11.59 Encounter for screening for other viral diseases (principal); R74.8 Abnormal levels of other serum enzymes; R79.89 Other specified abnormal findings of blood chemistry; E78.5 Hyperlipidemia, unspecified
CPT/HCPCS: 36415; 76700; 80061; 84443; 86376; 86704; 86706; 86709; 86803; 87340

== ENCOUNTER → 2024-10-16 08:33 | Outpatient (BNV) | payer OTHER, SELFPAY | PROVIDERS: PCP Nurse Practitioner Family; Visit Provider Radiology Diagnostic Radiology | DX: K76.0 Fatty (change of) liver, not elsewhere classified (principal) | CPT/HCPCS: 76700 ==